=== PATIENT | female | born 1980 | race Caucasian/White ===

== ENCOUNTER → 2024-02-29 12:44 | Outpatient (REF) | payer OTHER, SELFPAY | LOC: HWRAD 12:44 | PROVIDERS: ATTENDING PHYSICIAN Obstetrics & Gynecology Gynecologic Oncology; FAMILY PHYSICIAN Nurse Practitioner | DX: D69.6 Thrombocytopenia, unspecified (principal); D73.1 Hypersplenism; D72.819 Decreased white blood cell count, unspecified; Z15.89 Genetic susceptibility to other disease | CPT/HCPCS: 76830; 76856 ==

== ENCOUNTER → 2024-04-05 13:25 | Outpatient (REF) | payer OTHER, SELFPAY | LOC: HWRAD 13:25 | PROVIDERS: ATTENDING PHYSICIAN Internal Medicine Rheumatology; FAMILY PHYSICIAN Nurse Practitioner; REFERRING PHYSICIAN Internal Medicine | DX: M25.561 Pain in right knee (principal); M25.562 Pain in left knee; M54.50 Low back pain, unspecified; L40.9 Psoriasis, unspecified | CPT/HCPCS: 72110; 73560; 73565 ==

== ENCOUNTER → 2024-04-25 13:02 | Outpatient (REF) | payer OTHER, SELFPAY | LOC: RAD 13:02 | PROVIDERS: ATTENDING PHYSICIAN Internal Medicine Rheumatology; REFERRING PHYSICIAN Internal Medicine | DX: Z13.820 Encounter for screening for osteoporosis (principal) | CPT/HCPCS: 77080 ==

== ENCOUNTER → 2024-05-15 08:32 | Outpatient (REF) | payer OTHER, SELFPAY | LOC: WDC 08:32 | PROVIDERS: ATTENDING PHYSICIAN Advanced Practice Midwife; FAMILY PHYSICIAN Nurse Practitioner | DX: Z12.31 Encounter for screening mammogram for malignant neoplasm of breast (principal) | CPT/HCPCS: 77063; 77067 ==

== ENCOUNTER → 2024-09-18 10:30 | Outpatient (REF) | payer OTHER, SELFPAY | LOC: RAD 10:30 | PROVIDERS: ATTENDING PHYSICIAN Urology; FAMILY PHYSICIAN Family Medicine | DX: C64.2 Malignant neoplasm of left kidney, except renal pelvis (principal) | CPT/HCPCS: 71046; 76775 ==

== ENCOUNTER → 2024-11-26 10:28 | Outpatient (REF) | payer OTHER, SELFPAY ==
[2024-11-26 12:25] LABS: Glycohemoglobin (HgbA1c) 5.3 % (4.0-5.6)
[2024-11-26 12:49] LABS: ALT (SGPT) 30 U/L (0-35); AST (SGOT) 36 U/L (14-36); Albumin 4.1 g/dl (3.5-5.0); Alkaline Phosphatase 78 U/L (38-126); Blood Urea Nitrogen 5 mg/dl (7-17); Carbon Dioxide 28 mmol/L (22-30); Chloride 102 mmol/L (98-107); Glucose 114 mg/dl (70-99); HDL Cholesterol 80 mg/dl; LDL Cholesterol, Calculated 33 mg/dl; Potassium 3.9 mmol/L (3.5-5.1); Sodium 140 mmol/L (135-145); Total Bilirubin 0.9 mg/dl (0.2-1.3); Total Cholesterol 127 mg/dl (50-199); Total Protein 6.4 g/dl (6.3-8.2); Triglyceride 70 mg/dl (10-149); Very Low Density Lipoprotein 14 mg/dl (0-30); eGFR > 60.00
[2024-11-26 12:55] LABS: Microalbumin, Random Urine <0.6 mg/dl (0.6-1.7)
[2024-11-27 02:40] LABS: TSH 1.46 uIU/ml (0.47-4.68)
== END ==
LOC: HWLAB 10:28
PROVIDERS: ATTENDING PHYSICIAN Internal Medicine Endocrinology, Diabetes & Metabolism; FAMILY PHYSICIAN Nurse Practitioner Adult Health
DX: E11.9 Type 2 diabetes mellitus without complications (principal)
CPT/HCPCS: 36415; 80053; 80061; 82043; 82570; 83036; 84443

== ENCOUNTER → 2024-12-12 13:24 | Outpatient (REF) | payer OTHER, SELFPAY | LOC: HWRAD 13:24 | PROVIDERS: ATTENDING PHYSICIAN Internal Medicine Rheumatology; FAMILY PHYSICIAN Family Medicine | DX: M17.0 Bilateral primary osteoarthritis of knee (principal) | CPT/HCPCS: 73560; 73565; 73630 ==

== ENCOUNTER → 2025-05-16 16:22 | Outpatient (REF) | payer OTHER, SELFPAY | LOC: WDC 16:22 | DX: Z12.31 Encounter for screening mammogram for malignant neoplasm of breast (principal) | CPT/HCPCS: 77063; 77067 ==